=== PATIENT | female | born 1985 | race Caucasian/White ===

== ENCOUNTER 2020-05-31 17:38 | Inpatient (IN) | payer MEDICAID, OTHER ==
[~2020-05-31] VITALS: Ht 157.5 cm; Wt 50.3 kg
[2020-05-31] MEDS ORDERED: ACETAMINOPHEN 325MG TABLET PO STA ×2 (18:16→18:41)
[2020-05-31] MEDS ORDERED: SODIUM CHLORIDE 0.9% 1,000 ML IV ONE (18:30)
[2020-05-31 18:44] LABS: HEMATOCRIT. 41.8 % (36.0-48.0); HEMOGLOBIN. 13.7 g/dL (12.0-16.0); MEAN CORPUSCULAR HEMOGLOBIN 30.5 pg (28.0-32.0); MEAN CORPUSCULAR VOLUME 93.4 fL (81.0-99.0); MEAN PLATELET VOLUME 7.9 fl (7.4-10.4); PLATELET 242 x1000/uL (130-400); RED BLOOD CELL COUNT 4.48 mill/uL (4.2-5.4); RED CELL DISTRIBUTION WIDTH 13.3 % (11.6-14.6)
[2020-05-31] MEDS ORDERED: CEFTRIAXONE 1 G PREMIX 50 ML IV ONE (18:45)
[2020-05-31] MEDS ORDERED: METRONIDAZOLE 500 MG PREMIX 100 ML IV ONE (18:45)
[2020-05-31] MEDS ORDERED: SODIUM CHLORIDE 0.9% 1000ML BAG (SEPSIS BOLUS) IV ONE (18:45)
[2020-05-31 18:49] LABS: CHLORIDE 108 mEq/L (98-107)
[2020-05-31 18:52] LABS: HCG SCREEN NEGATIVE
[2020-05-31] MEDS ORDERED: METOCLOPRAMIDE HCL 10MG/2ML VIAL IV ONE (19:00)
[2020-05-31 19:38] LABS: PLATELET ESTIMATE NORMAL
[2020-05-31] MEDS ORDERED: PIPERACILLIN/TAZOBACTAM 3.375GM/50ML PREMIX IV ONE (19:45)
[2020-05-31] MEDS ORDERED: VANCOMYCIN 1 G PREMIX 200 ML IV SCH (19:45)
[2020-05-31 19:56] LABS: CLARITY URINE CLOUDY (CLEAR); COLOR URINE YELLOW (YELLOW); KETONES URINE NEGATIVE (NEGATIVE); LEUKOCYTE ESTERASE URINE 2+ (NEGATIVE); NITRITE URINE NEGATIVE (NEGATIVE); OCCULT BLOOD URINE 3+ (NEGATIVE); PROTEIN URINE 1+ (NEGATIVE); UROBILINOGEN URINE 0.2 E.U./dL (0.2-1.0)
[2020-05-31] MEDS ORDERED: PIPERACILLIN/TAZ 3.375G PREMIX 50 ML IV NR (19:57)
[2020-05-31 20:26] LABS: MEAN CORPUSCULAR VOLUME 92.8 fL (81.0-99.0); PLATELET 217 x1000/uL (130-400); RED BLOOD CELL COUNT 3.88 mill/uL (4.2-5.4); RED CELL DISTRIBUTION WIDTH 13.1 % (11.6-14.6)
[2020-05-31 21:08] LABS: PLATELET ESTIMATE NORMAL
[2020-05-31] MEDS ORDERED: ONDANSETRON HCL 4MG/2ML INJ IV ONE (21:15)
[2020-05-31] MEDS ORDERED: IOHEXOL-300 100 ML BOTTLE ONE (21:51)
[2020-05-31] MEDS ORDERED: NOREPINEPHRINE 8MG/250ML PMX 250 ML IV STA (22:14)
[2020-05-31] MEDS ORDERED: ACETAMINOPHEN 325MG TABLET PO ONE (22:30)
[2020-05-31] MEDS ORDERED: IPRATROPIUM/ALBUTEROL 0.5-3(2.5)MG/3ML NEB NEB PRN (23:45)
[2020-05-31] MEDS ORDERED: NOREPINEPHRINE 8 MG in DEXTROSE 5% WATER 250 ML IV PRN (23:45)
[2020-05-31] MEDS ORDERED: DOCUSATE SODIUM 100MG CAPSULE PO PRN (23:45)
[2020-05-31] MEDS ORDERED: HYDROCODONE/ACETAMINOPHEN 5/325MG TABLET PO PRN (23:45)
[2020-05-31] MEDS ORDERED: MORPHINE SULFATE 2 MG/ML CPJ (NOT FOR IM USE) IV PRN (23:45)
[2020-05-31] MEDS ORDERED: CLONIDINE 0.1MG TABLET PO PRN (23:45)
[2020-05-31] MEDS ORDERED: MAGNESIUM/ALUMINUM HYDROXIDE/SIMETHICONE 30ML UDC PO PRN (23:45)
[2020-05-31] MEDS ORDERED: GUAIFENESIN 200MG/10ML SUGAR FREE UDC PO PRN (23:45)
[2020-06-01] MEDS: SODIUM CHLORIDE 0.9% 1,000 ML IV SCH ×3 (00:22→20:21)
[2020-06-01 00:35] LABS: CHLORIDE 115 mEq/L (98-107)
[2020-06-01 05:41] LABS: HEMATOCRIT. 34.4 % (36.0-48.0); HEMOGLOBIN. 11.6 g/dL (12.0-16.0); MEAN CORPUSCULAR HEMOGLOBIN 31.2 pg (28.0-32.0); MEAN CORPUSCULAR VOLUME 92.4 fL (81.0-99.0); MEAN PLATELET VOLUME 8.3 fl (7.4-10.4); PLATELET 208 x1000/uL (130-400); RED BLOOD CELL COUNT 3.72 mill/uL (4.2-5.4); RED CELL DISTRIBUTION WIDTH 13.2 % (11.6-14.6)
[2020-06-01 05:54] LABS: LDL CHOLESTEROL 57 mg/dL (5-100)
[2020-06-01 05:57] LABS: CREATINE KINASE 165 IU/L (26-192); HDL CHOLESTEROL 64 mg/dL (40-59)
[2020-06-01 05:59] LABS: CREATINE KINASE MB FRACTION < 1.0 ng/mL (0.5-3.6)
[2020-06-01 06:22] LABS: PLATELET ESTIMATE NORMAL
[2020-06-01] MEDS: ONDANSETRON HCL 4MG/2ML INJ IV PRN (08:43)
[2020-06-01] MEDS ORDERED: VANCOMYCIN 750 MG PREMIX 150 ML IV SCH (09:00)
[2020-06-01] MEDS: VANCOMYCIN 1250MG in DEXTROSE 5% WATER 250ML IV SCH ×2 (09:10→23:30)
[2020-06-01] MEDS: ACETAMINOPHEN 325MG TABLET PO PRN (13:09)
[2020-06-01] MEDS ORDERED: POTASSIUM CHLORIDE INJ 40 MEQ in DEXT 5% WATER 250 ML IV SCH (15:00)
[2020-06-01 15:47] LABS: CREATINE KINASE 245 IU/L (26-192)
[2020-06-01 15:49] LABS: CREATINE KINASE MB FRACTION < 1.0 ng/mL (0.5-3.6)
[2020-06-02] MEDS ORDERED: NOREPINEPHRINE 8 MG in DEXTROSE 5% WATER 250 ML IV PRN (00:30)
[2020-06-02] MEDS: ONDANSETRON HCL 4MG/2ML INJ IV PRN (01:25)
[2020-06-02] MEDS: ACETAMINOPHEN 325MG TABLET PO PRN ×2 (09:10→17:43)
[2020-06-02] MEDS: VANCOMYCIN 1250MG in DEXTROSE 5% WATER 250ML IV SCH ×2 (09:37→23:59)
[2020-06-02 09:45] LABS: HEMATOCRIT. 34.6 % (36.0-48.0); HEMOGLOBIN. 11.4 g/dL (12.0-16.0); MEAN CORPUSCULAR HEMOGLOBIN 31.1 pg (28.0-32.0); MEAN CORPUSCULAR VOLUME 94.4 fL (81.0-99.0); MEAN PLATELET VOLUME 9.2 fl (7.4-10.4); PLATELET 174 x1000/uL (130-400); RED BLOOD CELL COUNT 3.67 mill/uL (4.2-5.4); RED CELL DISTRIBUTION WIDTH 13.4 % (11.6-14.6)
[2020-06-02 09:46] LABS: CHLORIDE 116 mEq/L (98-107)
[2020-06-02] MEDS ORDERED: CEFTRIAXONE 1 G PREMIX 50 ML IV SCH (12:00)
[2020-06-02] MEDS: SODIUM CHLORIDE 0.9% 1,000 ML IV SCH (15:45)
[2020-06-02 22:18] LABS: PLATELET ESTIMATE NORMAL
[2020-06-02 23:56] LABS: BASOPHILS % 0.8 % (0.0-2.0); EOSINOPHILS % 1.3 % (0.0-5.0); HEMATOCRIT. 35.1 % (36.0-48.0); HEMOGLOBIN. 11.6 g/dL (12.0-16.0); LYMPHOCYTES % 7.6 % (20.0-50.0); MEAN CORPUSCULAR HEMOGLOBIN 30.6 pg (28.0-32.0); MEAN CORPUSCULAR VOLUME 92.6 fL (81.0-99.0); MEAN PLATELET VOLUME 8.5 fl (7.4-10.4); MONOCYTES % 3.8 % (2.0-8.0); NEUTROPHILS % 86.5 % (40.0-76.0); PLATELET 172 x1000/uL (130-400); RED BLOOD CELL COUNT 3.79 mill/uL (4.2-5.4); RED CELL DISTRIBUTION WIDTH 13.5 % (11.6-14.6)
[2020-06-02 23:59] LABS: CHLORIDE 116 mEq/L (98-107)
[2020-06-03] VITALS: BP 123/76
[2020-06-03] MEDS: SODIUM CHLORIDE 0.9% 1,000 ML IV SCH ×2 (02:04→11:50)
[2020-06-03 04:00] VITALS: BP 93/59
[2020-06-03 04:58] VITALS: BP 118/82
[2020-06-03 06:51] LABS: CHLORIDE 115 mEq/L (98-107)
[2020-06-03 08:00] VITALS: BP 106/68
[2020-06-03] MEDS: VANCOMYCIN 1250MG in DEXTROSE 5% WATER 250ML IV SCH (08:29)
[2020-06-03] MEDS ORDERED: CEFTRIAXONE 1,000 MG in DEXTROSE 5% WATER 50 ML IV SCH (12:00)
[2020-06-03] MEDS: ACETAMINOPHEN 325MG TABLET PO PRN ×2 (14:01→20:29)
[2020-06-03] MEDS ORDERED: VANCOMYCIN 1 G PREMIX 200 ML IV SCH (17:00)
[2020-06-03] MEDS ORDERED: VANCOMYCIN 1250MG in DEXTROSE 5% WATER 250ML IV SCH (17:00)
[2020-06-03] MEDS ORDERED: POTASSIUM CHLORIDE 20MEQ TABLET SR PO NR (17:30)
[2020-06-03] MEDS ORDERED: CLIN300C12 MT (18:02)
[2020-06-03 19:42] VITALS: BP 96/60
== END 2020-06-03 21:17 | disposition home or self-care (01) | DRG 871 ==
LOC: ER 17:38 → MICUSO 23:21 → EDBEDREQ 23:32 → EDBEDREQSVC 23:32 → EDBEDREQTM 23:33 → EDBEDREQSVC 06-02 18:21 → EDBEDREQDT 06-02 18:21 → 8WST 06-02 20:36
PROVIDERS: ADMIT Internal Medicine; ATTEND Internal Medicine
PROC: 05HY33Z Insertion of Infusion Device into Upper Vein, Percutaneous Approach (ICD-10-PCS; principal; 2020-05-31)
DX: A41.9 Sepsis, unspecified organism (principal); R65.21 Severe sepsis with septic shock; E87.6 Hypokalemia; N75.0 Cyst of Bartholin's gland
CPT/HCPCS: 36415; 71045; 74177; 80048; 80053; 80061; 80202; 81003; 82550; 82553; 83605; 84145; 84443; 84484; 84703; 85025; 93005; 99291; J0696; J2405; J2543; J2765; J3370; J3480; J3490; J7030; J7060; Q9967